=== PATIENT | female | born 1990 | race Caucasian/White ===

== ENCOUNTER 2018-08-11 03:02 | Emergency (ER) | payer BC ==
[~2018-08-11] VITALS: Ht 167.6 cm; Wt 78.1 kg
[~2018-08-11 03:02] MED LIST: IBUP-1222 PO; OXYC-302 PO
[2018-08-11] MEDS ORDERED: BUPR-86 PO (03:08)
[2018-08-11] MEDS ORDERED: TOLT1TAB14 PO (03:08)
--- NOTE | 2018-08-11 03:40 | NUR ---
FIRST CONTACT WITH PT. PT C/O COUGH/SORE THROAT/NASAL CONGESTION X A FEW DAYS. PT DENIES N/V/D AT THIS TIME. BP/SPO2 MONITORS IN PLACE. CALL LIGHT WITHIN REACH.
--- NOTE | 2018-08-11 03:48 | NUR ---
PT IN XRAY.
[2018-08-11 04:28] VITALS: BP 127/89
== END 2018-08-11 05:34 | disposition home or self-care (01) ==
LOC: ED 05:30
DX: J20.8 Acute bronchitis due to other specified organisms (principal); B34.9 Viral infection, unspecified
CPT/HCPCS: 71046; 99283